=== PATIENT | female | born 1980 | race Two or more races ===

== ENCOUNTER 2021-05-18 05:16 | Emergency (ER) | payer MEDICAID, OTHER ==
[~2021-05-18] VITALS: Ht 170.2 cm; Wt 95.3 kg
[2021-05-18 07:02] LABS: Urine Bacteria FEW /hpf (None Seen); Urine Blood 2+ /uL (Negative); Urine Specific Gravity 1.005 (1.001-1.035); Urine WBC 4 /hpf (0 - 5)
[2021-05-18 07:25] LABS: Basophils # (auto) 0 10 ^3/uL (0-0.2); Basophils % (auto) 0.5 % (0.0-2.0); Eosinophils # (auto) 0.1 10 ^3/uL (0-0.8); Eosinophils % (auto) 0.6 % (0.0-7.0); Hematocrit 42.8 % (36.0-46.0); Hemoglobin 14.7 g/dL (12.2-16.2); Lymphocytes # (auto) 1.4 10 ^3/uL (0.4-5.4); Lymphocytes % (auto) 13.8 % (10.0-50.0); Mean Corpuscular Hemoglobin 29.5 pg (28.0-32.0); Mean Corpuscular Hgb Conc. 34.3 g/dL (32.0-36.0); Mean Corpuscular Volume 85.9 fL (80.0-100.0); Monocytes # (auto) 0.5 10 ^3/uL (0-1.3); Monocytes % (auto) 4.7 % (0.0-12.0); Neutrophils % (auto) 80.4 % (37.0-80.0); Red Blood Cells 4.98 10^6/uL (4.0-5.20); Red Cell Distribution Width 13.6 % (11.8-14.3)
[2021-05-18 07:49] LABS: Albumin 3.6 g/dL (3.4-5.0); Calcium 8.6 mg/dL (8.5-10.1); Potassium 4.3 mmol/L (3.5-5.1)
[2021-05-18 07:54] LABS: BUN/Creatinine Ratio 22.6; Bilirubin, Total 0.3 mg/dL (0.2-1.0); Total Protein 8.3 g/dL (6.4-8.2)
[2021-05-18 08:25] VITALS: BP 138/69
== END 2021-05-18 08:28 | disposition home or self-care (01) ==
LOC: ER 05:16
DX: K80.80 Other cholelithiasis without obstruction (principal)
CPT/HCPCS: 36415; 74176; 80053; 81001; 83690; 85025